=== PATIENT | female | born 1945 | race Caucasian/White ===

== ENCOUNTER 2017-12-27 15:55 | Emergency (ER) | payer MEDICARE ==
[2017-12-27] MEDS ORDERED: SODIUM CHLORIDE 0.9% 1,000 ML IV STA (16:58)
--- NOTE | 2017-12-27 17:14 | ED ---
General Adult HPI - General Chief complaint: Recheck/Abnormal Lab/Rx Stated complaint: HTN/sent by [facility] Source: patient Mode of arrival: wheelchair Limitations: no limitations - History of Present Illness Initial comments: Dictation was produced using [employer] dictation software. please excuse any grammatical, word or spelling errors. Chief Complaint: 72-year-old female with past medical history of aortic aneurysm status post repair presents via instruction from visiting physician for low blood pressure. History of Present Illness: Patient is a 72-year-old female past medical history of aortic aneurysm status post repair presents with low blood pressure. Patient states she's been feeling dizzy just today. Vitals were taken by visiting staff showed low blood pressure with a systolic in the 70s. She does have to the ER. Patient states that she's been feeling well except for some minor dizziness today. Patient denies any other medical problems except for thyroid disorder. The ROS documented in this emergency department record has been reviewed and confirmed by me. Those systems with pertinent positive or negative responses have been documented in the HPI. All other systems are other negative and/or noncontributory. - Related Data Allergies Allergy/AdvReac Type Severity Reaction Status Date / Time Iodine and Iodide Containing Allergy Unknown Verified 12/27/17 17:39 Produc Review of Systems ROS Statement: Those systems with pertinent positive or pertinent negative responses have been documented in the HPI. ROS Other: All systems not noted in ROS Statement are negative. Past Medical History Past Medical History: Thyroid Disorder History of Any Multi-Drug Resistant Organisms: None Reported Additional Past Surgical History / Comment(s): aortic aneurism surgery Past Psychological History: No Psychological Hx Reported Smoking Status: Current every day smoker Past Alcohol Use History: None Reported Past Drug Use History: None Reported General Exam - General Exam Comments Initial Comments: PHYSICAL EXAM: General Impression: Alert and oriented x3, not in acute distress HEENT: Normocephalic atraumatic, extra-ocular movements intact, pupils equal and reactive to light bilaterally, mucous membranes moist. Cardiovascular: Heart regular rate and rhythm, S1&S2 audible, no murmurs, rubs or gallops Chest: Lungs clear to auscultation bilaterally, no rhonchi, no wheeze, no rales Abdomen: Bowel sounds present, abdomen soft, non-tender, non-distended, no organomegaly, no pulsatile abdominal mass Musculoskeletal: Pulses present and equal in all extremities, no peripheral edema Motor: Power 5/5 bilaterally, no focal deficits noted Neurological: CN II-XII grossly intact, no focal motor or sensory deficits noted Skin: Intact with no visualized rashes Psych: Normal affect and mood Limitations: no limitations Course Vital Signs 12/27/17 12/27/17 16:42 16:59 Temperature 97.7 F Pulse Rate 74 Pulse Rate [ 71 Sitting] Pulse Rate [ 86 Standing] Pulse Rate [ 66 Supine] Respiratory 18 Rate Blood Pressure 89/65 Blood Pressure 98/70 [Sitting] Blood Pressure 102/60 [Standing] Blood Pressure 100/64 [Supine] O2 Sat by Pulse 96 Oximetry Medical Decision Making - Medical Decision Making ED course: 72-year-old female presents via instruction from visiting medical staff for low blood pressure. Patient has chief complaint of dizziness. Vital signs upon arrival shows blood pressure of 89/65, rest of vital signs within normal limits. Laboratory evaluation obtained. CBC is unremarkable. Blood gases show mild acidemia metabolic acidemia. Metabolic panel is unremarkable. X-ray of the abdomen with chest shows no acute issues. There is findings to suggest COPD. Orthostatic vital signs were obtained and found to be at a normal low level. Discussed with patient that we would like to keep her in observation for 2-D echo and further monitoring. She reports that she did not want stay because she feels as though this is a normal blood pressure for her. Patient has not seen a wirer in the past. It was recommended to her to be admitted to hospital however she adamantly refused and wanted to go home. Discussed with patient that if she believes she could have another episode of hypotension that may lead to a lifelong morbidity and mortality. Patient understands the risks. At the time of conversation patient is competent. Patient requested to leave against advice. She is told to follow-up with her physician tomorrow who may want to order an echocardiogram. At this point there is no clear etiology of patient's hypotension. This may very well be patient's normal however low blood pressure has not been worked up for in the past. Patient was given intravenous fluids. Patient reports she is feeling well. No obvious signs of bleeding. Labs are otherwise unremarkable. EKG Interpretation: A 12 lead EKG was obtained. It was interpreted by myself and attending physician. There is a P wave before every QRS complex. Rate is 71. Rhythm is sinus rhythm,. Interval 106, QRS 78, QTc 439. QT is not prolonged. No ST segment depression or elevation. Overall, this EKG is unremarkable - Lab Data Result diagrams: 12/27/17 17:35 12/27/17 17:35 Lab Results 12/27/17 12/27/17 12/27/17 Range/Units 17:35 17:35 17:35 WBC 5.7 (3.8-10.6) k/uL RBC 4.57 (3.80-5.40) m/uL Hgb 14.1 (11.4-16.0) gm/dL Hct 42.2 (34.0-46.0) % MCV 92.3 (80.0-100.0) fL MCH 30.7 (25.0-35.0) pg MCHC 33.3 (31.0-37.0) g/dL RDW 13.6 (11.5-15.5) % Plt Count 166 (150-450) k/uL Neutrophils % 68 % Lymphocytes % 19 % Monocytes % 6 % Eosinophils % 4 % Basophils % 1 % Neutrophils # 3.9 (1.3-7.7) k/uL Lymphocytes # 1.1 (1.0-4.8) k/uL Monocytes # 0.4 (0-1.0) k/uL Eosinophils # 0.3 (0-0.7) k/uL Basophils # 0.0 (0-0.2) k/uL VBG pH 7.28 L (7.31-7.41) VBG pCO2 44 (37-51) mmHg VBG HCO3 20 L (24-28) mmol/L Sodium 141 (137-145) mmol/L Potassium 4.0 (3.5-5.1) mmol/L Chloride 106 (98-107) mmol/L Carbon Dioxide 26 (22-30) mmol/L Anion Gap 9 mmol/L BUN 16 (7-17) mg/dL Creatinine 0.50 L (0.52-1.04) mg/dL Est GFR (CKD-EPI)AfAm >90 (>60 ml/min/1.73 sqM) Est GFR (CKD-EPI)NonAf >90 (>60 ml/min/1.73 sqM) Glucose 89 (74-99) mg/dL Plasma Lactic Acid Jaison (0.7-2.0) mmol/L Calcium 9.5 (8.4-10.2) mg/dL Magnesium 1.8 (1.6-2.3) mg/dL Total Bilirubin 0.3 (0.2-1.3) mg/dL AST 20 (14-36) U/L ALT 20 (9-52) U/L Alkaline Phosphatase 73 (38-126) U/L Troponin I (0.000-0.034) ng/mL Total Protein 6.1 L (6.3-8.2) g/dL Albumin 3.8 (3.5-5.0) g/dL 12/27/17 12/27/17 Range/Units 17:35 17:35 WBC (3.8-10.6) k/uL RBC (3.80-5.40) m/uL Hgb (11.4-16.0) gm/dL Hct (34.0-46.0) % MCV (80.0-100.0) fL MCH (25.0-35.0) pg MCHC (31.0-37.0) g/dL RDW (11.5-15.5) % Plt Count (150-450) k/uL Neutrophils % % Lymphocytes % % Monocytes % % Eosinophils % % Basophils % % Neutrophils # (1.3-7.7) k/uL Lymphocytes # (1.0-4.8) k/uL Monocytes # (0-1.0) k/uL Eosinophils # (0-0.7) k/uL Basophils # (0-0.2) k/uL VBG pH (7.31-7.41) VBG pCO2 (37-51) mmHg VBG HCO3 (24-28) mmol/L Sodium (137-145) mmol/L Potassium (3.5-5.1) mmol/L Chloride (98-107) mmol/L Carbon Dioxide (22-30) mmol/L Anion Gap mmol/L BUN (7-17) mg/dL Creatinine (0.52-1.04) mg/dL Est GFR (CKD-EPI)AfAm (>60 ml/min/1.73 sqM) Est GFR (CKD-EPI)NonAf (>60 ml/min/1.73 sqM) Glucose (74-99) mg/dL Plasma Lactic Acid Jaison 1.0 (0.7-2.0) mmol/L Calcium (8.4-10.2) mg/dL Magnesium (1.6-2.3) mg/dL Total Bilirubin (0.2-1.3) mg/dL AST (14-36) U/L ALT (9-52) U/L Alkaline Phosphatase (38-126) U/L Troponin I <0.012 (0.000-0.034) ng/mL Total Protein (6.3-8.2) g/dL Albumin (3.5-5.0) g/dL Disposition Clinical Impression: Hypotension Disposition: Left Against Medical Advice Condition: Fair Is patient prescribed a controlled substance at d/c from ED?: No Referrals: Nonstaff,Physician [Primary Care Provider] - 1-2 days Time of Disposition: 18:39
[2017-12-27 17:18] VITALS: PULSE 66
[2017-12-27 17:54] LABS: VBG PH 7.28 (7.31-7.41)
[2017-12-27 17:59] LABS: Basophils % (A) 1 %; Eosinophils # (A) 0.3 k/uL (0-0.7); Eosinophils % (A) 4 %; HCT 42.2 % (34.0-46.0); HGB 14.1 gm/dL (11.4-16.0); Lymphocytes # (A) 1.1 k/uL (1.0-4.8); Lymphocytes % (A) 19 %; MCH 30.7 pg (25.0-35.0); MCHC 33.3 g/dL (31.0-37.0); MCV 92.3 fL (80.0-100.0); Mean Platelet Volume 6.9; Monocytes # (A) 0.4 k/uL (0-1.0); Monocytes % (A) 6 %; Neutrophils # (A) 3.9 k/uL (1.3-7.7); Neutrophils % (A) 68 %; Platelet Count 166 k/uL (150-450); RBC 4.57 m/uL (3.80-5.40); RDW 13.6 % (11.5-15.5); WBC 5.7 k/uL (3.8-10.6)
[2017-12-27 18:06] LABS: ALT 20 U/L (9-52); AST 20 U/L (14-36); Albumin 3.8 g/dL (3.5-5.0); Alkaline Phosphatase 73 U/L (38-126); Anion Gap 9 mmol/L; Blood Urea Nitrogen 16 mg/dL (7-17); Calcium 9.5 mg/dL (8.4-10.2); Carbon Dioxide 26 mmol/L (22-30); Chloride 106 mmol/L (98-107); Glucose 89 mg/dL (74-99); Magnesium 1.8 mg/dL (1.6-2.3); Sodium 141 mmol/L (137-145); Total Bilirubin 0.3 mg/dL (0.2-1.3); Total Protein 6.1 g/dL (6.3-8.2)
--- NOTE | 2017-12-27 18:19 | XR ---
EXAMINATION TYPE: XR abdomen acute w cxr DATE OF EXAM: 12/27/2017 COMPARISON: NONE HISTORY: Chest pain TECHNIQUE: Chest x-ray with supine and upright abdomen FINDINGS: There is aortoiliac stent. There is no sign of intestinal obstruction or pneumoperitoneum. Fecal issa alvino is normal. There is no heart failure nor confluent pneumonic infiltrate. There is pulmonary hyperinflation. Hear t size is normal. There is no pleural effusion. There are no pathologic calcifications over the kidne ys.. IMPRESSION: Nonacute abdomen. COPD. No active cardiopulmonary disease.
[2017-12-27 18:41] VITALS: BP 110/66; RESP 16; TEMP 98
== END 2017-12-27 18:58 | disposition left against medical advice (07) ==
LOC: EC 15:55
DX: I95.9 Hypotension, unspecified (principal); E87.2 Acidosis; F17.200 Nicotine dependence, unspecified, uncomplicated; Z88.8 Allergy status to other drugs, medicaments and biological substances
CPT/HCPCS: 36415; 74022; 80053; 82803; 83605; 83735; 84484; 85025; 93005; 96360; 96361; 99284